=== PATIENT | female | born 1980 | race Caucasian/White ===

== ENCOUNTER 2016-12-11 06:00 | Inpatient (IN) ==
[2016-12-11] MEDS ORDERED: STADOL IV PRN (06:10)
[2016-12-11] MEDS ORDERED: KEFZOL 1 GM/D5W 1 GM/50 ML IVPB IV PRN (06:10)
[2016-12-11] MEDS ORDERED: TYLENOL PO PRN (06:10)
[2016-12-11] MEDS ORDERED: ZOFRAN IV PRN (06:10)
[2016-12-11] MEDS ORDERED: PEPCID IV PRN (06:10)
[2016-12-11] MEDS ORDERED: PEPCID PO PRN (06:10)
[2016-12-11] MEDS ORDERED: SODIUM CHLORIDE 0.9% INJ SCH (06:15)
[2016-12-11] MEDS: LR 1,000 ML IV SCH ×3 (07:37→11:45)
[2016-12-11 07:48] LABS: MANUAL DIFF NEEDED? NO
[2016-12-11 07:51] LABS: BASO% 0.2 % (0.0-0.8); EOS% 1.8 % (0.0-10.0); HEMATOCRIT 38.3 % (37.0-47.0); HEMOGLOBIN 12.7 g/dL (12.0-16.0); IMM GRAN# 0.01 X1000 (0.0-0.04); IMM GRAN% 0.2 % (0.0-0.5); LYMPH# 0.85 X1000 (1.2-3.4); LYMPH% 15.2 % (20.5-51.1); MCH 28.5 PG (27-31); MCHC 33.2 g/dL (33-37); MCV 86.1 FL (81-99); MONO# 0.51 X1000 (0.11-0.59); MONO% 9.1 % (1.7-9.3); MPV 9.7 FL (7.4-10.4); NEUT% 73.5 % (42.2-75.2); PLT 237 X1000 (130-400); RBC 4.45 XMIL (4.2-5.4)
[2016-12-11] MEDS ORDERED: MINERAL OIL TOP ONE (07:51)
[2016-12-11] MEDS ORDERED: XYLOCAINE-MPF 1% INJ ONE ×2 (07:51→08:15)
[2016-12-11] MEDS: PITOCIN 30 UNITS/LR 30 UNITS/500 ML IV.SOLN IV SCH ×2 (07:55→13:20)
[2016-12-11] MEDS ORDERED: FENTANYL-BUPIV-NS 2 MCG-0.1% 200 ML EPIDURAL PRN (08:08)
[2016-12-11 08:47] LABS: UR AMPHETAMINES QUAL NONE DETECTED (NONE DETECT); UR BARBITUATES QUAL NONE DETECTED (NONE DETECT); UR BENZODIAZEPIN QUAL NONE DETECTED (NONE DETECT); UR CANNABINOIDS QUAL NONE DETECTED (NONE DETECT); UR COCAINE QUAL NONE DETECTED (NONE DETECT); UR MDMA QUAL NONE DETECTED (NONE DETECT); UR METHADONE QUAL NONE DETECTED (NONE DETECT); UR METHAMPHETAMINE QUAL NONE DETECTED (NONE DETECT); UR OPIATES QUAL NONE DETECTED (NONE DETECT); UR OXYCODONE QUAL NONE DETECTED (NONE DETECT); UR PCP QUAL NONE DETECTED (NONE DETECT); UR TCA QUAL NONE DETECTED (NONE DETECT)
[2016-12-11] MEDS ORDERED: XYLOCAINE-MPF 1% INJ PRN (13:20)
[2016-12-11] MEDS ORDERED: BOOSTRIX VACCINE IM ONE (13:20)
[2016-12-11] MEDS ORDERED: PITOCIN IM PRN (13:20)
[2016-12-11] MEDS ORDERED: PITOCIN 20 UNITS/LR 20 UNITS/1,000 ML IV.SOLN IV SCH (13:20)
[2016-12-11] MEDS ORDERED: BENADRYL IV PRN (13:20)
[2016-12-11] MEDS ORDERED: NORCO-5 PO PRN (13:20)
[2016-12-11] MEDS ORDERED: PERI MEDS (DERMOPLAST/NUPERCAINAL/TUCKS) MISC PRN (13:20)
[2016-12-11] MEDS ORDERED: PITOCIN 30 UNITS/LR 30 UNITS/500 ML IV.SOLN IV ONE (13:20)
[2016-12-11] MEDS ORDERED: HYDROXYZINE IM PRN (13:20)
[2016-12-11] MEDS ORDERED: PERCOCET-10 PO PRN (13:20)
[2016-12-11] MEDS ORDERED: CYTOTEC PO PRN (13:20)
[2016-12-11] MEDS ORDERED: BENADRYL PO PRN (13:20)
[2016-12-11] MEDS ORDERED: NORCO-10 PO PRN (13:20)
[2016-12-11] MEDS ORDERED: MINERAL OIL PO PRN (13:20)
[2016-12-11] MEDS ORDERED: MOTRIN PO PRN (13:20)
[2016-12-11] MEDS ORDERED: M-M-R II VACCINE SUBQ ONE (13:20)
[2016-12-11] MEDS ORDERED: PERCOCET-5 PO PRN (13:20)
[2016-12-11] MEDS ORDERED: AMBIEN PO PRN (13:20)
[2016-12-11] MEDS ORDERED: HYDROXYZINE PO PRN (13:20)
[2016-12-11] MEDS ORDERED: PERICOLACE PO SCH (21:00)
[2016-12-12 06:35] LABS: HEMATOCRIT 33.5 % (37.0-47.0); HEMOGLOBIN 10.9 g/dL (12.0-16.0); MCH 28.7 PG (27-31); MCHC 32.5 g/dL (33-37); MCV 88.2 FL (81-99); MPV 10.3 FL (7.4-10.4); RBC 3.8 XMIL (4.2-5.4)
[2016-12-12] MEDS ORDERED: PRECARE PO SCH (09:00)
== END 2016-12-12 08:15 | disposition home or self-care (01) ==
LOC: P.LD 06:05 → P.WC 15:36
PROVIDERS: ADMIT Obstetrics & Gynecology; ATTEND Obstetrics & Gynecology